=== PATIENT | female | born 1950 | race Caucasian/White ===

== ENCOUNTER 2023-03-08 15:51 | Outpatient (CLI) | payer MEDICARE, BC, SELFPAY ==
--- NOTE | ~2023-03-08 | XR_ITS ---
XR lumbar spine min 4V DATE: 03/08/2023 16:22 INDICATION: Low back pain TECHNIQUE: Standing AP, lateral and standing flexion and extension lateral views COMPARISON: None FINDINGS: There is degenerative changes apophyseal joints with minimal grade 1 anterolisthesis at L5- S1. No fracture or bone destruction is evident. The included lower thoracic and lumbar pedicles are intac t. There is moderately severe degenerative disc disease at L1 to and L5-S1 and severe degenerative disea se at L2-3, L3-4, L4-5. The sacroiliac joints are intact. Status post right total hip arthroplasty. There is a prominent amount of fecal material in the ascending and transverse colon. IMPRESSION: Multilevel degenerative disc disease, particularly severe at L2-3, L3-4, L4-5, moderately severe at L1 to and L5-S1 Grade 1 anterolisthesis at L5-S1 Status post right total hip arthroplasty Reviewed, dictated and finalized at location [facility]
== END 2023-03-08 15:52 | disposition home or self-care (01) ==
PROVIDERS: PCP Internal Medicine Infectious Disease; Visit Provider Physician Assistant
DX: M51.36 Other intervertebral disc degeneration, lumbar region (principal); M51.37 Other intervertebral disc degeneration, lumbosacral region
CPT/HCPCS: 72110